=== PATIENT | female | born 1995 | race Hispanic/Latino ===

== ENCOUNTER → 2018-11-08 12:45 | Outpatient (CLI) | payer OTHER, MEDICAID, SELFPAY ==
--- NOTE | 2018-11-08 | DI.RAD.S_ITS ---
PROCEDURE: XR CHEST 1V INDICATIONS: TB SCREENING TECHNIQUE: One view of the chest was acquired. COMPARISON: [facility], , CHEST 2 VIEW, 10/30/2017, 15:39. FINDINGS: Surgical changes and devices: None. Lungs and pleura: No pleural effusions or pneumothorax. Lungs are clear. Mediastinum: Mediastinal contours appear normal. Heart size is normal. Bones and chest wall: No suspicious bony lesions. Overlying soft tissues appear unremarkable. IMPRESSION: No radiographic evidence of active pulmonary tuberculosis. Dictated by: Zeke Esparza [facility] Interpreted: Anshul Arevalo MD on 11/08/2018 at 13:59 Approved by: Anshul Arevalo M.D. on 11/08/2018 at 21:21
== END ==
PROVIDERS: Visit Provider Nurse Practitioner Family
DX: Z11.1 Encounter for screening for respiratory tuberculosis (principal)
CPT/HCPCS: 71045

== ENCOUNTER → 2019-07-11 09:45 | Outpatient (CLI) | payer OTHER, MEDICAID, SELFPAY ==
[2019-07-11 10:38] LABS: Bilirubin Urine UA NEGATIVE (NEGATIVE); Color Urine UA YELLOW; Glucose Urine UA NEGATIVE (Negative); Ketones Urine UA NEGATIVE (NEGATIVE); Leukocyte Esterase Urine UA NEGATIVE (NEGATIVE); Nitrite Urine UA POSITIVE (Negative); Occult Blood Urine UA TRACE-INTACT (Negative); Protein Urine UA NEGATIVE (Negative); Specific Gravity Urine UA 1.015 (1.000-1.035); Urobilinogen Urine UA 0.2 E.U./dL (0.2)
[2019-07-11 10:40] LABS: Appearance Urine UA Slightly Cloudy
[2019-07-11 10:46] LABS: Add Manual Diff / Slide Review NO; Basophils Absolute Auto 100 /uL (0-100); Basophils Percent Auto 0.5 % (0-2); Eosinophils Absolute Auto 100 /uL (0-450); Eosinophils Percent Auto 0.7 % (2-4); Hemoglobin 12.6 g/dL (12.0-16.0); Lymphocytes Absolute Auto 2200 /uL (1100-4500); Lymphocytes Percent Auto 21.3 % (25-40); Mean Corpuscular HGB Conc 34.1 % (30-36); Mean Corpuscular Hemoglobin 30.2 PG (26-34); Mean Corpuscular Volume 88.6 fL (80-100); Monocytes Absolute Auto 700 /uL (0-900); Monocytes Percent Auto 7.3 % (3-14); Neutrophils Absolute Auto 7200 /uL (1500-7000); Neutrophils Percent Auto 70.2 % (50-75); Platelet Count 305 X10^3/uL (150-400); Red Blood Cell Count 4.18 X10^6/uL (4.0-5.2); Red Cell Distribution Width 13.6 % (11.6-14.8); White Blood Cell Count 10.3 X10^3/uL (4.5-11.0)
[2019-07-11 12:02] LABS: Hepatitis B Surface Antigen NEGATIVE s/c (NEGATIVE)
[2019-07-11 12:17] LABS: HIV 1 and 2 Antibody NEGATIVE (NEGATIVE); Hep C Virus Ab w/Reflex Quant NEGATIVE s/c (NEGATIVE)
[2019-07-25 13:20] LABS: RPR Screen NONREACTIVE; RPR Titer NONREACTIVE
== END ==
PROVIDERS: Visit Provider Obstetrics & Gynecology
DX: Z34.81 Encounter for supervision of other normal pregnancy, first trimester (principal)
CPT/HCPCS: 36415; 80055; 81003; 86703; 86787; 86803; 86850; 86900; 86901; 87077; 87086; 87186

== ENCOUNTER → 2019-07-16 15:42 | Outpatient (CLI) | payer OTHER, MEDICAID, SELFPAY ==
--- NOTE | 2019-07-16 15:44 | DI.US.S_ITS ---
PROCEDURE: US OB >= 14 WEEKS FETUS INDICATIONS: ANATOMY SCAN OUTSIDE/PRIOR DATING DATA: Last menstrual period (LMP): 02/06/19. LMP-based estimated date of delivery (FLORIDALMA): 11/13/19. First dating scan (date and location): 07/16/19. Estimated date of delivery (FLORIDALMA) from first dating scan: 11/18/19. TECHNIQUE: Real-time scanning was performed of the fetus, with image documentation and biometric measurements. Endovaginal scanning: No COMPARISON: [facility], , OB <= 14 WEEKS FETUS, 05/14/2019, 17:04. [facility], , OB < 14 WEEKS + OB TRANSVAG, 03/22/2019, 17:23. [facility], OB >= 14 WEEKS FETUS, 06/15/2019, 17:09. FINDINGS: General: A single living intrauterine gestation is present. Presentation: Breech. Placenta: Placental position is anterior, without previa. Amniotic fluid index: 15.5 cm, normal range is 5-24 cm. heart rate: 144 beats per minute. Maternal cervical canal: 4.1 cm long. Normal lower limit is 2.5 cm. biometrics: Biparietal diameter: 21 weeks 2 days Head circumference: 21 weeks 4 days Abdominal circumference: 22 weeks 1 day Femur length: 22 weeks 6 days Estimated gestational age from initial scan: 22 weeks 6 days Composite gestational age from present scan: 22 weeks 1 day Estimated weight and percentile: 496 g; 21st percentile Measurement variability for biometric dating: +/- 7 days from 14 weeks to 15 weeks 6 days gestation, +/- 10 days from 16 weeks to 21 weeks 6 days gestation, +/- 2 weeks from 22 weeks to 27 weeks 6 days gestation, +/- 3 weeks for 28 weeks gestation or later. weight reference: 4500 g or EFW >90/95% is considered macrosomia or large for gestational age. EFW <10% is small for gestational age. EFW 5% or less is considered intra-uterine growth restriction. Anatomic survey: Neuro: Ventricles are non-dilated at 5 mm. Cisterna magna is normal at 6 mm. Cerebellum is normal in size and morphology. Nuchal skin fold: Normal at 3 mm. Face: The nose and lips are not well-seen on this exam. Spine: No ultrasound evidence for spina bifida. Heart: 4-chambered heart is present, with no gross abnormality of the ventricular outflow tracts identified. Diaphragm: Diaphragm appears intact. Stomach: Stomach is present. Kidneys: No gross hydronephrosis identified. Cord: Orthotopic insertion. Bladder: Normal in size. Extremities: All 4 extremities identified. IMPRESSION: 1. Single intrauterine gestation with heart rate of 144 beats per minute and mean composite gestational age of 22 weeks 1 day. 2. The nose and lips are not well-seen on this exam. Attention on followup exams recommended. Dictated by: Zeke Esparza [facility] Interpreted: Anshul Arevalo MD on 07/16/2019 at 16:52 Approved by: Anshul Arevalo M.D. on 07/16/2019 at 23:51
== END ==
PROVIDERS: Visit Provider Obstetrics & Gynecology
DX: Z34.82 Encounter for supervision of other normal pregnancy, second trimester (principal)
CPT/HCPCS: 76811

== ENCOUNTER → 2019-08-07 14:44 | Outpatient (CLI) | payer OTHER, MEDICAID, SELFPAY ==
[2019-08-07 16:47] LABS: Hematocrit 35.7 % (36-46); Hemoglobin 11.9 g/dL (12.0-16.0)
[2019-08-07 17:20] LABS: GTT (PREG) 1 Hour PP 50gm Dose 98 mg/dL (76-139)
== END ==
DX: Z34.82 Encounter for supervision of other normal pregnancy, second trimester (principal)
CPT/HCPCS: 36415; 82950; 85014; 85018

== ENCOUNTER 2019-08-28 12:58 | Observation (INO) | payer OTHER, MEDICAID, SELFPAY ==
[2019-08-28 13:38] LABS: Appearance Urine UA SL CLOUDY; Bilirubin Urine UA NEGATIVE (NEGATIVE); Color Urine UA YELLOW; Glucose Urine UA NEGATIVE (Negative); Ketones Urine UA NEGATIVE (NEGATIVE); Leukocyte Esterase Urine UA NEGATIVE (NEGATIVE); Nitrite Urine UA POSITIVE (Negative); Occult Blood Urine UA NEGATIVE (Negative); Protein Urine UA NEGATIVE (Negative); Urobilinogen Urine UA 0.2 E.U./dL (0.2)
[2019-08-28 13:45] LABS: Add Manual Diff / Slide Review NO; Basophils Absolute Auto 100 /uL (0-100); Basophils Percent Auto 0.7 % (0-2); Eosinophils Absolute Auto 100 /uL (0-450); Eosinophils Percent Auto 0.7 % (2-4); Hematocrit 35.1 % (36-46); Hemoglobin 11.7 g/dL (12.0-16.0); Lymphocytes Absolute Auto 2200 /uL (1100-4500); Lymphocytes Percent Auto 17.5 % (25-40); Mean Corpuscular HGB Conc 33.4 % (30-36); Mean Corpuscular Hemoglobin 29.3 PG (26-34); Mean Corpuscular Volume 87.8 fL (80-100); Monocytes Absolute Auto 900 /uL (0-900); Neutrophils Absolute Auto 9500 /uL (1500-7000); Neutrophils Percent Auto 74.1 % (50-75); Platelet Count 295 X10^3/uL (150-400); Red Blood Cell Count 3.99 X10^6/uL (4.0-5.2); Red Cell Distribution Width 13.3 % (11.6-14.8); White Blood Cell Count 12.8 X10^3/uL (4.5-11.0)
[2019-08-28 13:58] LABS: Aspartate Aminotransferase 41 IU/L (14-36); BUN Creatinine Ratio 23.3 (6-22); Blood Urea Nitrogen 7 mg/dL (7-17); Estimated Glomerular Filt Rate > 60.0 mL/min (>60); Uric Acid 1.8 mg/dL (2.5-6.2)
== END 2019-08-28 14:21 | disposition home or self-care (01) ==
PROVIDERS: Admitting Provider Obstetrics & Gynecology; Visit Provider Obstetrics & Gynecology
DX: O26.893 Other specified pregnancy related conditions, third trimester (principal); Z3A.28 28 weeks gestation of pregnancy; R25.2 Cramp and spasm; R03.0 Elevated blood-pressure reading, without diagnosis of hypertension
CPT/HCPCS: 59025; 81003; 84450; 84550; 85025; 87077; 87086; 87186; G0378; G0379

== ENCOUNTER 2019-09-21 13:45 | Outpatient (RCR) | payer OTHER, MEDICAID, SELFPAY ==
--- NOTE | 2019-09-05 11:08 | PT.OIE ---
Current Diagnoses Low back pain (09/05/19) Other specified related conditions, unspecified trimester (09/05/19) 27 weeks gestation of (09/05/19) Visit Care Team Role Provider Type Olimpia Nicole MD Attending Provider Physician Specialty: TREE SCOUT Address: [address] [place] [address], [id number] Email: [email or web address] Physical Therapy Initial Evaluation PT-OP-A Visit Information Start: 09/04/19 07:39 Freq: Status: Active Protocol: Document 09/05/19 07:31 MB (Rec: 09/05/19 08:15 MB [id number]) Out-Patient Physical Therapy Visit Information Visit Information Visit Type Initial Evaluation Visit Note Pt allowed 1 eval, 24 units Visit Start Time 07:31 Visit Stop Time 08:15 Total Visit Minutes 44 Visit Number 0/8 treatments Number of AIR TRAFFIC CONTROL OPERATOR Visits 0 Precautions Precautions Pt PT-OP-B Current Condition Start: 09/04/19 07:39 Freq: Status: Active Protocol: Document 09/05/19 07:31 MB (Rec: 09/05/19 08:15 MB [id number]) Current Condition History of Current Condition Onset Date Pain 27 weeks gestation History of Current Condition Pt responds onset of back pain as her has progessed. Pt states that she is now 29-30 weeks and is due 11/13/19. This is her second child. She did not have back pain her last . She had pre- eclampsia and was induced at 8 months. She had a vaginal . She has good awareness of her body. She is paying attention to any pre-eclampsia signs she had last time including swelling, GRAY, SOB and visual changes. She is concerned about 1 episode of confusion. Pt reports LBP over her sacrum , mostly in the center and then occ on the left. Lying down on back increases pain. She is using a pillow between her knees in side lying. She can sleep well. Her back hurts the first hour she lies down. 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 She uses a gait belt. Prior Treatments and Tests Her doctor talked to her about a SI belt and asked her to ask her insurance about getting one. PT-OP-C Subjective Start: 09/04/19 07:39 Freq: Status: Active Protocol: Document 09/05/19 07:31 MB (Rec: 09/05/19 08:15 MB [id number]) OP-PT Subjective Patient Comments Patient Comments Pt reports back pain that is worsening with pregancy progression. Patient Questionnaires Oswestry Low Back Index Oswestry Impairment 20 to 39% Impaired (Score 20- 39) PT-OP-Q Treatments Start: 09/04/19 07:39 Freq: Status: Active Protocol: Document 09/05/19 07:31 MB (Rec: 09/05/19 10:59 MB [id number]) Self-Care/Home Management Treatment Education Other Education Log roll, benefits of SI belt and possible therapy ball PT-OP-T Assessment and Plan Start: 09/04/19 07:42 Freq: Status: Active Protocol: Document 09/05/19 07:31 MB (Rec: 09/05/19 11:02 MB [id number]) Physical Therapy Assessment Assessment Summary Assessment Pt is a 23 y/o female in third trimester of with progressive LB and left sided pain near SI joint. This is her second , history of vaginal and she is due 11/13/19. She reports history of pre-eclampsia last and is wathching for signs and symptoms again. 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 She hopes to work as long as possible before baby is born. Pt is a single mom of her 5 y/o and is motivated to con't I. Her presentation is evolving and that is barrier to PT. Physical Therapy Plan Frequency and Duration Frequency of Treatment 2x/wk x3, 1x/wkx2 Duration of Treatment 8 weeks Plan of Care Start Date 09/05/19 Plan of Care End Date 11/05/19 Therapeutic Interventions Therapeutic Interventions Aquatic Therapy,Balance Training,Home Exercise Program ,Manual Therapy,Neuromuscular Re-education,Patient/Caregiver Education,Self-Care/Home Management,Soft Tissue Mobilization,Taping, Therapeutic Exercises Modalities Cold Pack/Ice Massage,Hot Packs Next Visit Focus/Plan Next Note Type Treatment Note Next Visit Plan Consider teaching ball squeeze , standing calf stretch, pelvic realignment exercises, progress mini squat, body mechanics, core work in quadriped, possible gentle hip flexor and QL stretch
--- NOTE | 2019-09-05 11:08 | PT.OPPOC ---
Current Diagnoses Low back pain (09/05/19) Other specified related conditions, unspecified trimester (09/05/19) 27 weeks gestation of (09/05/19) Visit Care Team Role Provider Type Olimpia Nicole MD Attending Provider Physician Specialty: TRANSPORTATION SOLUTIONS MANAGER Address: [address] [place] [address], [id number] Email: [email or web address] Plan Of Care PT-OP-T Assessment and Plan Start: 09/04/19 07:42 Freq: Status: Active Protocol: Document 09/05/19 07:31 MB (Rec: 09/05/19 11:02 MB [id number]) Physical Therapy Assessment Assessment Summary Assessment Pt is a 23 y/o female in third trimester of with progressive LB and left sided pain near SI joint. This is her second , history of vaginal and she is due 11/13/19. She reports history of pre-eclampsia last and is wathching for signs and symptoms again. 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 Pt is a single mom of her 5 y/o and is motivated to con't I. Her presentation is evolving and that is barrier to PT. Physical Therapy Plan Frequency and Duration Frequency of Treatment 2x/wk x3, 1x/wkx2 Duration of Treatment 8 weeks Plan of Care Start Date 09/05/19 Plan of Care End Date 11/05/19 Therapeutic Interventions Therapeutic Interventions Aquatic Therapy,Balance Training,Home Exercise Program ,Manual Therapy,Neuromuscular Re-education,Patient/Caregiver Education,Self-Care/Home Management,Soft Tissue Mobilization,Taping, Therapeutic Exercises Modalities Cold Pack/Ice Massage,Hot Packs Next Visit Focus/Plan Next Note Type Treatment Note Next Visit Plan Consider teaching ball squeeze , standing calf stretch, pelvic realignment exercises, progress mini squat, body mechanics, core work in quadriped, possible gentle hip flexor and QL stretch Plan of Care Dates Plan of Care Start Date 09/05/19 Plan of Care End Date 11/05/19
--- NOTE | 2019-09-05 11:20 | PT.OIE ---
Current Diagnoses Low back pain (09/05/19) Other specified related conditions, unspecified trimester (09/05/19) 27 weeks gestation of (09/05/19) Visit Care Team Role Provider Type Olimpia Nicole MD Attending Provider Physician Specialty: SPECIAL DELIVERY CARRIER Address: [address] [place] [address], [id number] Email: [email or web address] Physical Therapy Initial Evaluation PT-OP-A Visit Information Start: 09/04/19 07:39 Freq: Status: Active Protocol: Document 09/05/19 07:31 MB (Rec: 09/05/19 08:15 MB [id number]) Out-Patient Physical Therapy Visit Information Visit Information Visit Type Initial Evaluation Visit Note Pt allowed 1 eval, 24 units Visit Start Time 07:31 Visit Stop Time 08:15 Total Visit Minutes 44 Visit Number 0/8 treatments Number of SUPERVISOR WHIPPED TOPPING Visits 0 Precautions Precautions Pt PT-OP-B Current Condition Start: 09/04/19 07:39 Freq: Status: Active Protocol: Document 09/05/19 07:31 MB (Rec: 09/05/19 08:15 MB [id number]) Current Condition History of Current Condition Onset Date Pain 27 weeks gestation History of Current Condition Pt responds onset of back pain as her has progessed. Pt states that she is now 29-30 weeks and is due 11/13/19. This is her second child. She did not have back pain her last . She had pre- eclampsia and was induced at 8 months. She had a vaginal . She has good awareness of her body. She is paying attention to any pre-eclampsia signs she had last time including swelling, GRAY, SOB and visual changes. She is concerned about 1 episode of confusion. Pt reports LBP over her sacrum , mostly in the center and then occ on the left. Lying down on back increases pain. She is using a pillow between her knees in side lying. She can sleep well. Her back hurts the first hour she lies down. 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 She uses a gait belt. Pt does not rate pain and states that she has a high pain tolerance. Prior Treatments and Tests Her doctor talked to her about a SI belt and asked her to ask her insurance about getting one. PT-OP-C Subjective Start: 09/04/19 07:39 Freq: Status: Active Protocol: Document 09/05/19 07:31 MB (Rec: 09/05/19 08:15 MB [id number]) OP-PT Subjective Patient Comments Patient Comments Pt reports back pain that is worsening with pregancy progression. Patient Questionnaires Oswestry Low Back Index Oswestry Impairment 20 to 39% Impaired (Score 20- 39) PT-OP-M Strength Start: 09/04/19 07:39 Freq: Status: Active Protocol: Document 09/05/19 07:31 MB (Rec: 09/05/19 11:17 MB [id number]) Hip Strength Hip Manual Muscle Testing Left Flexion (L2) 3+ Fair+ Abduction 4 Good Comments Sitting Right Flexion (L2) 4 Good Abduction 4 Good Comments Sitting Knee Strength Knee Manual Muscle Testing Left Flexion (S2) 4 Good Extension (L3) 5 Normal Comments Sitting Right Flexion (S2) 4 Good Extension (L3) 5 Normal Comments Sitting Ankle/Foot Strength Ankle and Foot Manual Muscle Testing Left Dorsiflexion (L4) 5 Normal Plantarflexion (S1) 5 Normal Comments Great toe extension 5/5 All tested sitting Right Dorsiflexion (L4) 5 Normal Plantarflexion (S1) 5 Normal Comments Great toe extension 5/5 All tested sitting PT-OP-Q Treatments Start: 09/04/19 07:39 Freq: Status: Active Protocol: Document 09/05/19 07:31 MB (Rec: 09/05/19 10:59 MB [id number]) Self-Care/Home Management Treatment Education Other Education Log roll, benefits of SI belt and possible therapy ball PT-OP-T Assessment and Plan Start: 09/04/19 07:42 Freq: Status: Active Protocol: Document 09/05/19 07:31 MB (Rec: 09/05/19 11:02 MB [id number]) Physical Therapy Assessment Goals 4 Retirement Goal (LTG) Pt will perform progressive HEP with I by 11/05/19. LTG Duration 8 weeks 3 Impairment Weakness Rn Intern Goal (LTG) Pt will present with B hip flexion, abduction and knee flexion strength to 5/5 by . LTG Duration 8 weeks 2 Impairment Pain Rn Intern Goal (LTG) Pt will report a 15% improvement in pain by . LTG Duration 8 weeks 1 Impairment Impairment on Oswestry Rn Intern Goal (LTG) Pt will present with an improved Oswestry LBP scale score to reflect no more than 25% impairment by 11/05/19. LTG Duration 8 weeks Assessment Summary Assessment Pt is a 23 y/o female in third trimester of with progressive LB and left sided pain near SI joint. This is her second , history of vaginal and she is due 11/13/19. She reports history of pre-eclampsia last and is wathching for signs and symptoms again. 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 Pt is a single mom of her 5 y/o and is motivated to con't I. Her presentation is evolving and that is barrier to PT. Physical Therapy Plan Frequency and Duration Frequency of Treatment 2x/wk x3, 1x/wkx2 Duration of Treatment 8 weeks Plan of Care Start Date 09/05/19 Plan of Care End Date 11/05/19 Therapeutic Interventions Therapeutic Interventions Aquatic Therapy,Balance Training,Home Exercise Program ,Manual Therapy,Neuromuscular Re-education,Patient/Caregiver Education,Self-Care/Home Management,Soft Tissue Mobilization,Taping, Therapeutic Exercises Modalities Cold Pack/Ice Massage,Hot Packs Next Visit Focus/Plan Next Note Type Treatment Note Next Visit Plan Consider teaching ball squeeze , standing calf stretch, pelvic realignment exercises, progress mini squat, body mechanics, core work in quadriped, possible gentle hip flexor and QL stretch
--- NOTE | 2019-09-07 15:06 | PT.OTN ---
Current Diagnoses Low back pain (09/07/19) Other specified related conditions, unspecified trimester (09/07/19) 27 weeks gestation of (09/07/19) Physical Therapy Treatment Note PT-OP-A Visit Information Start: 09/04/19 07:39 Freq: Status: Active Protocol: Document 09/07/19 15:01 MB (Rec: 09/07/19 15:05 MB [id number]) Out-Patient Physical Therapy Visit Information Visit Information Visit Type Treatment Note Visit Note Shortened treatment d/t pt concerned about pre-eclampsia sxs of swelling, feeling ill Visit Start Time 14:34 Visit Stop Time 14:49 Total Visit Minutes 15 Visit Number 1 Number of RECRUITING CONSULTANT Visits 0 PT-OP-B Current Condition Start: 09/04/19 07:39 Freq: Status: Active Protocol: Document 09/05/19 07:31 MB (Rec: 09/05/19 08:15 MB [id number]) Current Condition History of Current Condition Onset Date Pain 27 weeks gestation History of Current Condition Pt responds onset of back pain as her has progessed. Pt states that she is now 29-30 weeks and is due 11/13/19. This is her second child. She did not have back pain her last . She had pre- eclampsia and was induced at 8 months. She had a vaginal . She has good awareness of her body. She is paying attention to any pre-eclampsia signs she had last time including swelling, GRAY, SOB and visual changes. She is concerned about 1 episode of confusion. Pt reports LBP over her sacrum , mostly in the center and then occ on the left. Lying down on back increases pain. She is using a pillow between her knees in side lying. She can sleep well. Her back hurts the first hour she lies down. 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 She uses a gait belt. Pt does not rate pain and states that she has a high pain tolerance. Prior Treatments and Tests Her doctor talked to her about a SI belt and asked her to ask her insurance about getting one. PT-OP-C Subjective Start: 09/04/19 07:39 Freq: Status: Active Protocol: Document 09/07/19 14:34 MB (Rec: 09/07/19 14:57 MB [id number]) OP-PT Subjective Patient Comments Patient Comments Pt states that she felt so bad today that she thought she might go to the ED. She went to the doctor. She is worried about pre-eclampsia. She woke up two mornings ago with swollen hands and LE swelling. She states that her BP was never high with pre-eclampsia with her 4 y/o son. She was changed to light duty. She does not feel normal. BP and HR right UE this date: 118/94, 102. PT-OP-M Strength Start: 09/04/19 07:39 Freq: Status: Active Protocol: Document 09/05/19 07:31 MB (Rec: 09/05/19 11:17 MB [id number]) Hip Strength Hip Manual Muscle Testing Left Flexion (L2) 3+ Fair+ Abduction 4 Good Comments Sitting Right Flexion (L2) 4 Good Abduction 4 Good Comments Sitting Knee Strength Knee Manual Muscle Testing Left Flexion (S2) 4 Good Extension (L3) 5 Normal Comments Sitting Right Flexion (S2) 4 Good Extension (L3) 5 Normal Comments Sitting Ankle/Foot Strength Ankle and Foot Manual Muscle Testing Left Dorsiflexion (L4) 5 Normal Plantarflexion (S1) 5 Normal Comments Great toe extension 5/5 All tested sitting Right Dorsiflexion (L4) 5 Normal Plantarflexion (S1) 5 Normal Comments Great toe extension 5/5 All tested sitting PT-OP-Q Treatments Start: 09/04/19 07:39 Freq: Status: Active Protocol: Document 09/07/19 14:34 MB (Rec: 09/07/19 15:05 MB [id number]) Self-Care/Home Management Treatment Education Other Education PT and pt discuss pt safety, that is is tachycardic, agreement that she will go to ED and she prefers [place] as she was cared for there previously and to alert PT if she has an adm or is induced or another medical complication PT-OP-T Assessment and Plan Start: 09/04/19 07:42 Freq: Status: Active Protocol: Document 09/07/19 14:34 MB (Rec: 09/07/19 15:05 MB [id number]) Physical Therapy Assessment Assessment Summary Assessment Pt arrives, concerned about feeling poorly today and possible pre-eclampsia. She is tachycardic when assessed by PT and her hands and LEs are mildly edematous. Con't to monitor. Physical Therapy Plan Next Visit Focus/Plan Next Note Type Treatment Note Next Visit Plan If appropriate--Consider teaching ball squeeze, standing calf stretch, pelvic realignment exercises, progress mini squat, body mechanics, core work in quadriped, possible gentle hip flexor and QL stretch
--- NOTE | 2019-09-11 07:29 | PT-OP ANOTE ---
PT calls pt to follow-up about her reports of going to ED after last treatment. She states that all tests were clear and she was sent home and back to work. She rested over the weekend and is on product/industry consultant duty at work. She is planning on coming to appointment tomorrow at 1430.
--- NOTE | 2019-09-12 15:28 | PT.OTN ---
Current Diagnoses Low back pain (09/12/19) Other specified related conditions, unspecified trimester (09/12/19) 27 weeks gestation of (09/12/19) Physical Therapy Treatment Note PT-OP-A Visit Information Start: 09/04/19 07:39 Freq: Status: Active Protocol: Document 09/12/19 14:34 MB (Rec: 09/12/19 15:28 MB [id number]) Out-Patient Physical Therapy Visit Information Visit Information Visit Type Treatment Note Visit Start Time 14:34 Visit Stop Time 15:14 Total Visit Minutes 40 Visit Number 2 Number of CARD HAND Visits 0 PT-OP-B Current Condition Start: 09/04/19 07:39 Freq: Status: Active Protocol: Document 09/05/19 07:31 MB (Rec: 09/05/19 08:15 MB [id number]) Current Condition History of Current Condition Onset Date Pain 27 weeks gestation History of Current Condition Pt responds onset of back pain as her has progessed. Pt states that she is now 29-30 weeks and is due 11/13/19. This is her second child. She did not have back pain her last . She had pre- eclampsia and was induced at 8 months. She had a vaginal . She has good awareness of her body. She is paying attention to any pre-eclampsia signs she had last time including swelling, GRAY, SOB and visual changes. She is concerned about 1 episode of confusion. Pt reports LBP over her sacrum , mostly in the center and then occ on the left. Lying down on back increases pain. She is using a pillow between her knees in side lying. She can sleep well. Her back hurts the first hour she lies down. 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 She uses a gait belt. Pt does not rate pain and states that she has a high pain tolerance. Prior Treatments and Tests Her doctor talked to her about a SI belt and asked her to ask her insurance about getting one. PT-OP-C Subjective Start: 09/04/19 07:39 Freq: Status: Active Protocol: Document 09/12/19 14:34 MB (Rec: 09/12/19 15:17 MB [id number]) OP-PT Subjective Patient Comments Patient Comments Pt states that her back hurts today as she and her partner had to lower a client with her legs when assisting him out of bath. PT-OP-M Strength Start: 09/04/19 07:39 Freq: Status: Active Protocol: Document 09/05/19 07:31 MB (Rec: 09/05/19 11:17 MB [id number]) Hip Strength Hip Manual Muscle Testing Left Flexion (L2) 3+ Fair+ Abduction 4 Good Comments Sitting Right Flexion (L2) 4 Good Abduction 4 Good Comments Sitting Knee Strength Knee Manual Muscle Testing Left Flexion (S2) 4 Good Extension (L3) 5 Normal Comments Sitting Right Flexion (S2) 4 Good Extension (L3) 5 Normal Comments Sitting Ankle/Foot Strength Ankle and Foot Manual Muscle Testing Left Dorsiflexion (L4) 5 Normal Plantarflexion (S1) 5 Normal Comments Great toe extension 5/5 All tested sitting Right Dorsiflexion (L4) 5 Normal Plantarflexion (S1) 5 Normal Comments Great toe extension 5/5 All tested sitting PT-OP-Q Treatments Start: 09/04/19 07:39 Freq: Status: Active Protocol: Document 09/12/19 14:34 MB (Rec: 09/12/19 15:28 MB [id number]) Therapeutic Exercises Sidelying Exercises Ball squeeze Comments Sitting on therapy ball, ball squeeze feet together/apart Standing Exercises Calf stretches and heel and toe raises Comments Calf stretches and heel and toe raises to perform at work Other Exercises Diaphragmatic breathing Comments Diaphragmatic breathing in sitting PT-OP-T Assessment and Plan Start: 09/04/19 07:42 Freq: Status: Active Protocol: Document 09/12/19 14:34 MB (Rec: 09/12/19 15:28 MB [id number]) Physical Therapy Assessment Goals 4 Clinical Fellow Goal (LTG) Pt will perform progressive HEP with I by 11/05/19. LTG Duration 8 weeks 3 Impairment Weakness Clinical Fellow Goal (LTG) Pt will present with B hip flexion, abduction and knee flexion strength to 5/5 by . LTG Duration 8 weeks 2 Impairment Pain Clinical Fellow Goal (LTG) Pt will report a 15% improvement in pain by . LTG Duration 8 weeks 1 Impairment Impairment on Oswestry Snf Goal (LTG) Pt will present with an improved Oswestry LBP scale score to reflect no more than 25% impairment by 11/05/19. LTG Duration 8 weeks Assessment Summary Assessment Pt is able to tolerate exercise initiation this date, but not supine exercises such as pelvic tilt, abdominal drawing in and Brant stretch. Quadriped is also not preferable d/t increased back pain. She responds well to using the therapy ball and ball squeeze for SI mobility. Encouraged her to get a therapy ball and SI belt if it is not a financial strain. Physical Therapy Plan Frequency and Duration Frequency of Treatment 2x/wk x3, 1x/wkx2 Duration of Treatment 8 weeks Plan of Care Start Date 09/05/19 Plan of Care End Date 11/05/19 Therapeutic Interventions Therapeutic Interventions Aquatic Therapy,Balance Training,Home Exercise Program ,Manual Therapy,Neuromuscular Re-education,Patient/Caregiver Education,Self-Care/Home Management,Soft Tissue Mobilization,Taping, Therapeutic Exercises Modalities Cold Pack/Ice Massage,Hot Packs Next Visit Focus/Plan Next Note Type Treatment Note Next Visit Plan Consider adding other standing stretches for legs and trunk.
--- NOTE | 2019-09-14 15:19 | PT.OTN ---
Current Diagnoses Low back pain (09/14/19) Other specified related conditions, unspecified trimester (09/14/19) 27 weeks gestation of (09/14/19) Physical Therapy Treatment Note PT-OP-A Visit Information Start: 09/04/19 07:39 Freq: Status: Active Protocol: Document 09/14/19 14:31 MB (Rec: 09/14/19 15:05 MB [id number]) Out-Patient Physical Therapy Visit Information Visit Information Visit Type Treatment Note Visit Note Shortened treatment d/t monitoring pt's tolerance to manual work for the first time , she felt well after treatment. Of note, today was a good pain day in general. Visit Start Time 14:31 Visit Stop Time 15:06 Total Visit Minutes 35 Visit Number 3 Number of NURSE SEXUAL ASSAULT Visits 0 PT-OP-B Current Condition Start: 09/04/19 07:39 Freq: Status: Active Protocol: Document 09/05/19 07:31 MB (Rec: 09/05/19 08:15 MB [id number]) Current Condition History of Current Condition Onset Date Pain 27 weeks gestation History of Current Condition Pt responds onset of back pain as her has progessed. Pt states that she is now 29-30 weeks and is due 11/13/19. This is her second child. She did not have back pain her last . She had pre- eclampsia and was induced at 8 months. She had a vaginal . She has good awareness of her body. She is paying attention to any pre-eclampsia signs she had last time including swelling, GRAY, SOB and visual changes. She is concerned about 1 episode of confusion. Pt reports LBP over her sacrum , mostly in the center and then occ on the left. Lying down on back increases pain. She is using a pillow between her knees in side lying. She can sleep well. Her back hurts the first hour she lies down. 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 She uses a gait belt. Pt does not rate pain and states that she has a high pain tolerance. Prior Treatments and Tests Her doctor talked to her about a SI belt and asked her to ask her insurance about getting one. PT-OP-C Subjective Start: 09/04/19 07:39 Freq: Status: Active Protocol: Document 09/14/19 14:31 MB (Rec: 09/14/19 15:05 MB [id number]) OP-PT Subjective Patient Comments Patient Comments Pt states that she is doing okay. She is thinking about getting a therapy ball. PT-OP-M Strength Start: 09/04/19 07:39 Freq: Status: Active Protocol: Document 09/05/19 07:31 MB (Rec: 09/05/19 11:17 MB [id number]) Hip Strength Hip Manual Muscle Testing Left Flexion (L2) 3+ Fair+ Abduction 4 Good Comments Sitting Right Flexion (L2) 4 Good Abduction 4 Good Comments Sitting Knee Strength Knee Manual Muscle Testing Left Flexion (S2) 4 Good Extension (L3) 5 Normal Comments Sitting Right Flexion (S2) 4 Good Extension (L3) 5 Normal Comments Sitting Ankle/Foot Strength Ankle and Foot Manual Muscle Testing Left Dorsiflexion (L4) 5 Normal Plantarflexion (S1) 5 Normal Comments Great toe extension 5/5 All tested sitting Right Dorsiflexion (L4) 5 Normal Plantarflexion (S1) 5 Normal Comments Great toe extension 5/5 All tested sitting PT-OP-Q Treatments Start: 09/04/19 07:39 Freq: Status: Active Protocol: Document 09/14/19 14:31 MB (Rec: 09/14/19 15:18 MB [id number]) Therapeutic Exercises Standing Exercises Pect stretch Comments Performed in doorway but not given for HEP yet Racquet ball massage Comments Racquet ball massage for intrascapular area. Ed pt in benefits Manual Therapy Treatment Soft Tissue Mobilization Pt sitting on therapy ball Comments Pt sitting on 65 cm therapy ball and reaching over 75 cm therapy ball: STM lumbar paraspinals and pt tighter on the left. Positional release for left SI joint. KT strip across LB between SI joints PT-OP-T Assessment and Plan Start: 09/04/19 07:42 Freq: Status: Active Protocol: Document 09/14/19 14:31 MB (Rec: 09/14/19 15:14 MB [id number]) Physical Therapy Assessment Goals 4 Head Charrer Goal (LTG) Pt will perform progressive HEP with I by 11/05/19. LTG Duration 8 weeks 3 Impairment Weakness Head Charrer Goal (LTG) Pt will present with B hip flexion, abduction and knee flexion strength to 5/5 by . LTG Duration 8 weeks 2 Impairment Pain Head Charrer Goal (LTG) Pt will report a 15% improvement in pain by . LTG Duration 8 weeks 1 Impairment Impairment on Oswestry Head Charrer Goal (LTG) Pt will present with an improved Oswestry LBP scale score to reflect no more than 25% impairment by 11/05/19. LTG Duration 8 weeks Physical Therapy Plan Frequency and Duration Frequency of Treatment 2x/wk x3, 1x/wkx2 Duration of Treatment 8 weeks Plan of Care Start Date 09/05/19 Plan of Care End Date 11/05/19 Therapeutic Interventions Therapeutic Interventions Aquatic Therapy,Balance Training,Home Exercise Program ,Manual Therapy,Neuromuscular Re-education,Patient/Caregiver Education,Self-Care/Home Management,Soft Tissue Mobilization,Taping, Therapeutic Exercises Modalities Cold Pack/Ice Massage,Hot Packs Next Visit Focus/Plan Next Note Type Treatment Note Next Visit Plan Consider progressing pect stretch, scapular strengthening, gentle hip flexor stretch in standing.
--- NOTE | 2019-09-19 10:30 | PT.OTN ---
Current Diagnoses Low back pain (09/19/19) Other specified related conditions, unspecified trimester (09/19/19) 27 weeks gestation of (09/19/19) Physical Therapy Treatment Note PT-OP-A Visit Information Start: 09/04/19 07:39 Freq: Status: Active Protocol: Document 09/19/19 09:50 MB (Rec: 09/19/19 10:30 MB [id number]) Out-Patient Physical Therapy Visit Information Visit Information Visit Type Treatment Note Visit Start Time 09:50 Visit Stop Time 10:30 Total Visit Minutes 40 Visit Number 4 Number of PROCESSOR GRAIN Visits 0 PT-OP-B Current Condition Start: 09/04/19 07:39 Freq: Status: Active Protocol: Document 09/05/19 07:31 MB (Rec: 09/05/19 08:15 MB [id number]) Current Condition History of Current Condition Onset Date Pain 27 weeks gestation History of Current Condition Pt responds onset of back pain as her has progessed. Pt states that she is now 29-30 weeks and is due 11/13/19. This is her second child. She did not have back pain her last . She had pre- eclampsia and was induced at 8 months. She had a vaginal . She has good awareness of her body. She is paying attention to any pre-eclampsia signs she had last time including swelling, GRAY, SOB and visual changes. She is concerned about 1 episode of confusion. Pt reports LBP over her sacrum , mostly in the center and then occ on the left. Lying down on back increases pain. She is using a pillow between her knees in side lying. She can sleep well. Her back hurts the first hour she lies down. 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 She uses a gait belt. Pt does not rate pain and states that she has a high pain tolerance. Prior Treatments and Tests Her doctor talked to her about a SI belt and asked her to ask her insurance about getting one. PT-OP-C Subjective Start: 09/04/19 07:39 Freq: Status: Active Protocol: Document 09/19/19 09:50 MB (Rec: 09/19/19 10:30 MB [id number]) OP-PT Subjective Patient Comments Patient Comments Pt states that she had pain on Tuesday only. 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 PT-OP-M Strength Start: 09/04/19 07:39 Freq: Status: Active Protocol: Document 09/05/19 07:31 MB (Rec: 09/05/19 11:17 MB [id number]) Hip Strength Hip Manual Muscle Testing Left Flexion (L2) 3+ Fair+ Abduction 4 Good Comments Sitting Right Flexion (L2) 4 Good Abduction 4 Good Comments Sitting Knee Strength Knee Manual Muscle Testing Left Flexion (S2) 4 Good Extension (L3) 5 Normal Comments Sitting Right Flexion (S2) 4 Good Extension (L3) 5 Normal Comments Sitting Ankle/Foot Strength Ankle and Foot Manual Muscle Testing Left Dorsiflexion (L4) 5 Normal Plantarflexion (S1) 5 Normal Comments Great toe extension 5/5 All tested sitting Right Dorsiflexion (L4) 5 Normal Plantarflexion (S1) 5 Normal Comments Great toe extension 5/5 All tested sitting PT-OP-Q Treatments Start: 09/04/19 07:39 Freq: Status: Active Protocol: Document 09/19/19 09:50 MB (Rec: 09/19/19 10:30 MB [id number]) Therapeutic Exercises Standing Exercises ER and scapular retraction shoulder extension level 2 band Comments Performed and added to HEP Pect stretch Comments Performed in doorway and added hip flexor stretch, handout given Racquet ball massage Comments Racquet ball massage for intrascapular area. Ed pt in benefits Manual Therapy Treatment Other Other Manual Treatments STM LB pt sitting on therapy ball and leaning over another, responds well, I strip black strip to support SI area PT-OP-T Assessment and Plan Start: 09/04/19 07:42 Freq: Status: Active Protocol: Document 09/19/19 09:50 MB (Rec: 09/19/19 10:30 MB [id number]) Physical Therapy Assessment Goals 4 Fdc Goal (LTG) Pt will perform progressive HEP with I by 11/05/19. LTG Duration 8 weeks 3 Impairment Weakness Fdc Goal (LTG) Pt will present with B hip flexion, abduction and knee flexion strength to 5/5 by . LTG Duration 8 weeks 2 Impairment Pain Grocery Worker Goal (LTG) Pt will report a 15% improvement in pain by . LTG Duration 8 weeks 1 Impairment Impairment on Oswestry Grocery Worker Goal (LTG) Pt will present with an improved Oswestry LBP scale score to reflect no more than 25% impairment by 11/05/19. LTG Duration 8 weeks Assessment Summary Assessment Con't progression of exercises . If her back is better in supine, con't pelvic realignment exercises. Physical Therapy Plan Frequency and Duration Frequency of Treatment 2x/wk x3, 1x/wkx2 Duration of Treatment 8 weeks Plan of Care Start Date 09/05/19 Plan of Care End Date 11/05/19 Therapeutic Interventions Therapeutic Interventions Aquatic Therapy,Balance Training,Home Exercise Program ,Manual Therapy,Neuromuscular Re-education,Patient/Caregiver Education,Self-Care/Home Management,Soft Tissue Mobilization,Taping, Therapeutic Exercises Modalities Cold Pack/Ice Massage,Hot Packs Next Visit Focus/Plan Next Note Type Treatment Note Next Visit Plan Review current exercises and consider multifidi vs mini squat for strengthening. Can assess if quadriped is appropriate.
--- NOTE | 2019-09-21 14:25 | PT.OTN ---
Current Diagnoses Low back pain (09/21/19) Other specified related conditions, unspecified trimester (09/21/19) 27 weeks gestation of (09/21/19) Physical Therapy Treatment Note PT-OP-A Visit Information Start: 09/04/19 07:39 Freq: Status: Active Protocol: Document 09/21/19 14:25 SP (Rec: 09/21/19 15:04 SP [id number]) Out-Patient Physical Therapy Visit Information Visit Information Visit Type Treatment Note Visit Note Shortened tx secondary to pt's tolerance to ther ex. Pt felt well after tx. Visit Start Time 13:56 Visit Stop Time 14:25 Total Visit Minutes 29 Visit Number 5 Number of PROPERTY MANAGEMENT COORDINATOR Visits 1 PT-OP-B Current Condition Start: 09/04/19 07:39 Freq: Status: Active Protocol: Document 09/05/19 07:31 MB (Rec: 09/05/19 08:15 MB [id number]) Current Condition History of Current Condition Onset Date Pain 27 weeks gestation History of Current Condition Pt responds onset of back pain as her has progessed. Pt states that she is now 29-30 weeks and is due 11/13/19. This is her second child. She did not have back pain her last . She had pre- eclampsia and was induced at 8 months. She had a vaginal . She has good awareness of her body. She is paying attention to any pre-eclampsia signs she had last time including swelling, GRAY, SOB and visual changes. She is concerned about 1 episode of confusion. Pt reports LBP over her sacrum , mostly in the center and then occ on the left. Lying down on back increases pain. She is using a pillow between her knees in side lying. She can sleep well. Her back hurts the first hour she lies down. 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 She uses a gait belt. Pt does not rate pain and states that she has a high pain tolerance. Prior Treatments and Tests Her doctor talked to her about a SI belt and asked her to ask her insurance about getting one. PT-OP-C Subjective Start: 09/04/19 07:39 Freq: Status: Active Protocol: Document 09/21/19 14:25 SP (Rec: 09/21/19 15:04 SP [id number]) OP-PT Subjective Patient Comments Patient Comments Pt stated didn't have any pain today, little congested and tired. Taping seemed to help and would like to reapply, no adverse reactions, skin normal color/ texture. PT-OP-M Strength Start: 09/04/19 07:39 Freq: Status: Active Protocol: Document 09/05/19 07:31 MB (Rec: 09/05/19 11:17 MB [id number]) Hip Strength Hip Manual Muscle Testing Left Flexion (L2) 3+ Fair+ Abduction 4 Good Comments Sitting Right Flexion (L2) 4 Good Abduction 4 Good Comments Sitting Knee Strength Knee Manual Muscle Testing Left Flexion (S2) 4 Good Extension (L3) 5 Normal Comments Sitting Right Flexion (S2) 4 Good Extension (L3) 5 Normal Comments Sitting Ankle/Foot Strength Ankle and Foot Manual Muscle Testing Left Dorsiflexion (L4) 5 Normal Plantarflexion (S1) 5 Normal Comments Great toe extension 5/5 All tested sitting Right Dorsiflexion (L4) 5 Normal Plantarflexion (S1) 5 Normal Comments Great toe extension 5/5 All tested sitting PT-OP-Q Treatments Start: 09/04/19 07:39 Freq: Status: Active Protocol: Document 09/21/19 14:25 SP (Rec: 09/21/19 15:04 SP [id number]) Therapeutic Exercises Supine Exercises pelvic 3 Supine Exercise Name leg press hold Side bilateral Reps/Minutes 3 sec hold x5 pelvic 2 Supine Exercise Name leg pelvic lift Side bilateral Reps/Minutes 3 sec hold x5 pelvic 1 Supine Exercise Name Ball squeeze Resistance small ball Reps/Minutes 3 sec hold x5 Sitting Exercises lat pull down Resistance Level 2 Tb Equipment Used spanish ball Reps/Minutes 3x10 Comments seated on spanish ball, elbow straight pull down to side Manual Therapy Treatment Taping SI taping Body Location PSIS X Treatment Focus compression support Type of Tape Kinesio Tape Skin Inspection normal color Comments good tolerance no skin irritation, instructed remove if have any redness, irritation otherwise can keep on til next tx. PT-OP-T Assessment and Plan Start: 09/04/19 07:42 Freq: Status: Active Protocol: Document 09/21/19 14:25 SP (Rec: 09/21/19 15:04 SP [id number]) Physical Therapy Assessment Assessment Summary Assessment Con't progression of exercises . Pt stated very low level discomfort during supine pelvic realignment exercises, cued slow activation concentric/ eccentric. Pt requried rest breaks between sets of 5 secondary to tiring. PRovided pillow modified supine during pelvic exercises with positive feedback. Pt stated X K taping felt more support. Cued for posture durign lat pull down able to increase to level 2 band today . Physical Therapy Plan Frequency and Duration Frequency of Treatment 2x/wk x3, 1x/wkx2 Duration of Treatment 8 weeks Plan of Care Start Date 09/05/19 Plan of Care End Date 11/05/19 Therapeutic Interventions Therapeutic Interventions Aquatic Therapy,Balance Training,Home Exercise Program ,Manual Therapy,Neuromuscular Re-education,Patient/Caregiver Education,Self-Care/Home Management,Soft Tissue Mobilization,Taping, Therapeutic Exercises Modalities Cold Pack/Ice Massage,Hot Packs Next Visit Focus/Plan Next Note Type Treatment Note Next Visit Plan Review current exercises and consider multifidi vs mini squat for strengthening. Can assess if quadriped is appropriate.
--- NOTE | 2019-10-01 14:53 | PT-IP ANOTE ---
Pt arrives to treatment. She states that she had a rough day at work and is getting over feeling ill. She does not feel like doing much today. After discussion, PT and pt agree to cancel today's appointment. She has one more appointment on 10/09/19 and plan for that to be last appointment pre-.
--- NOTE | 2019-10-09 14:51 | PT.OPDS ---
Current Diagnoses Low back pain (09/21/19) Other specified related conditions, unspecified trimester (09/21/19) 27 weeks gestation of (09/21/19) Visit Care Team Role Provider Type Olimpia Nicole MD Attending Provider Physician Specialty: SLIDE [employer] Address: [address] [place] [address], [id number] Email: [email or web address] Visit Number Visit Number 5 Discharge Summary PT-OP-B Current Condition Start: 09/04/19 07:39 Freq: Status: Active Protocol: Document 09/05/19 07:31 MB (Rec: 09/05/19 08:15 MB [id number]) Current Condition History of Current Condition Onset Date Pain 27 weeks gestation History of Current Condition Pt responds onset of back pain as her has progessed. Pt states that she is now 29-30 weeks and is due 11/13/19. This is her second child. She did not have back pain her last . She had pre- eclampsia and was induced at 8 months. She had a vaginal . She has good awareness of her body. She is paying attention to any pre-eclampsia signs she had last time including swelling, GRAY, SOB and visual changes. She is concerned about 1 episode of confusion. Pt reports LBP over her sacrum , mostly in the center and then occ on the left. Lying down on back increases pain. She is using a pillow between her knees in side lying. She can sleep well. Her back hurts the first hour she lies down. 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 She uses a gait belt. Pt does not rate pain and states that she has a high pain tolerance. Prior Treatments and Tests Her doctor talked to her about a SI belt and asked her to ask her insurance about getting one. PT-OP-C Subjective Start: 09/04/19 07:39 Freq: Status: Active Protocol: Document 09/21/19 14:25 SP (Rec: 09/21/19 15:04 SP [id number]) OP-PT Subjective Patient Comments Patient Comments Pt stated didn't have any pain today, little congested and tired. Taping seemed to help and would like to reapply, no adverse reactions, skin normal color/ texture. PT-OP-M Strength Start: 09/04/19 07:39 Freq: Status: Active Protocol: Document 09/05/19 07:31 MB (Rec: 09/05/19 11:17 MB [id number]) Hip Strength Hip Manual Muscle Testing Left Flexion (L2) 3+ Fair+ Abduction 4 Good Comments Sitting Right Flexion (L2) 4 Good Abduction 4 Good Comments Sitting Knee Strength Knee Manual Muscle Testing Left Flexion (S2) 4 Good Extension (L3) 5 Normal Comments Sitting Right Flexion (S2) 4 Good Extension (L3) 5 Normal Comments Sitting Ankle/Foot Strength Ankle and Foot Manual Muscle Testing Left Dorsiflexion (L4) 5 Normal Plantarflexion (S1) 5 Normal Comments Great toe extension 5/5 All tested sitting Right Dorsiflexion (L4) 5 Normal Plantarflexion (S1) 5 Normal Comments Great toe extension 5/5 All tested sitting PT-OP-T Assessment and Plan Start: 09/04/19 07:42 Freq: Status: Active Protocol: Document 10/09/19 14:50 MB (Rec: 10/09/19 14:51 MB [id number]) Physical Therapy Plan Discharge Physical Therapy Discharge Comments Pt did not show for appointment. Pt and PT discussed that this would be her last visit prior to of her daughter at last appointment. Will d/t PT.
== END 2019-10-11 08:29 ==
LOC: PHYS 13:45
PROVIDERS: Visit Provider Obstetrics & Gynecology
DX: O26.899 Other specified pregnancy related conditions, unspecified trimester (principal); M54.5 Low back pain; Z3A.27 27 weeks gestation of pregnancy
CPT/HCPCS: 97110; 97140; 97161; 97535

== ENCOUNTER 2019-10-08 14:08 | Outpatient (CLI) | payer OTHER, MEDICAID, SELFPAY | END 2019-10-08 14:45 | disposition home or self-care (01) | LOC: LABOR 14:33 → OB 10-09 14:50 | PROVIDERS: Visit Provider Obstetrics & Gynecology | DX: Z34.03 Encounter for supervision of normal first pregnancy, third trimester (principal); Z3A.34 34 weeks gestation of pregnancy | CPT/HCPCS: 59025; G0378; G0379 ==

== ENCOUNTER → 2019-10-22 14:04 | Outpatient (CLI) | payer OTHER, MEDICAID, SELFPAY ==
[2019-10-23 12:21] LABS: Strep Grp B PCR NEG for Grp B Strep
== END ==
PROVIDERS: Visit Provider Specialist
DX: Z34.83 Encounter for supervision of other normal pregnancy, third trimester (principal); Z3A.36 36 weeks gestation of pregnancy
CPT/HCPCS: 87653